=== PATIENT | female | born 1955 | race Caucasian/White ===

== ENCOUNTER 2024-06-28 21:20 | Emergency (ER) | payer MEDICARE ==
[~2024-06-28] VITALS: Ht 160 cm; Wt 79.4 kg
[2024-06-28 21:45] VITALS: TEMP 98
--- NOTE | 2024-06-28 22:30 | NUR ---
BIBS FOR FACIAL INJURY S/P TRIP AND FALL. PT IS ALERT AND ORIENTED. RR EVEN AND NON LABORED. AMBULATORY W/ STEADY GAIT
--- NOTE | 2024-06-28 22:33 | NUR ---
PT SENT TO CT SCAN
--- NOTE | 2024-06-28 23:27 | NUR ---
Patient discharged to home in stable condition. Written and verbal after care instructions given. Patient verbalizes understanding of instruction.
[2024-06-28 23:38] VITALS: BP 158/84; O2SAT 98
== END 2024-06-28 23:40 | disposition home or self-care (01) ==
LOC: ER 21:24
DX: S00.12XA Contusion of left eyelid and periocular area, initial encounter (principal); J45.909 Unspecified asthma, uncomplicated; Z98.890 Other specified postprocedural states; Z88.0 Allergy status to penicillin; W01.0XXA Fall on same level from slipping, tripping and stumbling without subsequent striking against object, initial encounter; Y93.89 Activity, other specified; Y92.89 Other specified places as the place of occurrence of the external cause; Y99.8 Other external cause status
CPT/HCPCS: 70450-TC